=== PATIENT | male | born 1980 | race Two or more races ===

== ENCOUNTER → 2019-08-27 | Outpatient (CLI) | payer OTHER ==
[~2019-08-27] MED LIST: ASPI81 PO; BUPR-93 PO; BUSP10TA23 PO; FLUO-191 PO; NAPR-1025 PO
== END | disposition home or self-care (01) ==
LOC: RADPV 12:12
PROVIDERS: ATTEND Orthopaedic Surgery
DX: M13.80 Other specified arthritis, unspecified site (principal)
CPT/HCPCS: 72040; 72070; 72100